=== PATIENT | male | born 1995 | race Caucasian/White ===

== ENCOUNTER 2017-11-16 17:43 | Emergency (ER) | payer MEDICAID ==
[~2017-11-16] VITALS: Ht 175.3 cm; Wt 68.2 kg
[2017-11-16] MEDS ORDERED: PredniSONE 20 MG TABLET PO ONE (19:45)
[2017-11-16] MEDS ORDERED: DiphenhydrAMINE HCL 25 MG CAPSULE PO ONE (19:45)
[2017-11-16 20:35] VITALS: BP 125/77
== END 2017-11-16 20:36 | disposition home or self-care (01) ==
LOC: EMS 17:47
DX: J11.1 Influenza due to unidentified influenza virus with other respiratory manifestations (principal); L50.9 Urticaria, unspecified; F17.210 Nicotine dependence, cigarettes, uncomplicated
CPT/HCPCS: 99283; J7512

== ENCOUNTER 2017-11-28 16:17 | Emergency (ER) | payer MEDICAID ==
[~2017-11-28] VITALS: Ht 177.8 cm; Wt 72.7 kg
[2017-11-28 17:36] LABS: AMPHET/METH SCREEN,URINE NEGATIVE (NEGATIVE); BARBITURATE SCREEN, URINE NEGATIVE (NEGATIVE); BENZODIAZEPINES SCREEN,URINE NEGATIVE (NEGATIVE); CANNABINOID SCREEN,URINE NEGATIVE (NEGATIVE); COCAINE SCREEN,URINE NEGATIVE (NEGATIVE); METHADONE SCREEN, URINE NEGATIVE (NEGATIVE); OPIATE SCREEN,URINE NEGATIVE (NEGATIVE); PHENCYCLIDINE SCREEN,URINE NEGATIVE (NEGATIVE)
[2017-11-28 17:52] VITALS: BP 128/77
== END 2017-11-28 17:50 | disposition home or self-care (01) ==
LOC: EMS 16:18
DX: F10.10 Alcohol abuse, uncomplicated (principal); F17.210 Nicotine dependence, cigarettes, uncomplicated; Z02.89 Encounter for other administrative examinations
CPT/HCPCS: 99283; 99406